=== PATIENT | female | born 1950 | race Caucasian/White ===

== ENCOUNTER 2018-05-30 09:32 | Outpatient (CLI) | payer MEDICARE | END 2018-05-30 09:33 | disposition home or self-care (01) | LOC: BICMAMMO 09:32 | PROVIDERS: ATTEND Family Medicine | DX: Z12.31 Encounter for screening mammogram for malignant neoplasm of breast (principal); Z13.820 Encounter for screening for osteoporosis; M85.852 Other specified disorders of bone density and structure, left thigh; Z80.3 Family history of malignant neoplasm of breast | CPT/HCPCS: 77063; 77067; 77080 ==

== ENCOUNTER 2018-05-30 12:56 | Outpatient (CLI) | payer MEDICARE ==
[2018-05-30] MEDS ORDERED: Gadobenate Dimeglumine 529 MG/1 ML (20ML VIAL) ONE (12:59)
== END 2018-05-30 12:57 | disposition home or self-care (01) ==
LOC: BICMRI 12:56
PROVIDERS: ATTEND Family Medicine
DX: Z12.31 Encounter for screening mammogram for malignant neoplasm of breast (principal); G93.9 Disorder of brain, unspecified; Z80.3 Family history of malignant neoplasm of breast
CPT/HCPCS: 70553; A9579

== ENCOUNTER 2018-11-15 08:20 | Outpatient (CLI) | payer MEDICARE ==
[2018-11-15 09:00] LABS: Estimated GFR-MDRD - POC Greater than 90
--- NOTE | 2018-11-15 11:17 | MRI ---
BRAIN MRI WITH AND WITHOUT CONTRAST: Date: 11/15/18 COMPARISON: 02/19/17, 05/30/18. TECHNIQUE: Brain MRI is performed with and without intravenous Gadolinium administration. Multisequential, multi planar imaging is performed. FINDINGS: Redemonstration of a right parafalcine mass with intrinsic hypointensity on the axial GRA sequence burgess ggesting calcification. This mass measures 1.9 x 1.3 cm and has some mild mass effect upon the medial right frontal lobe. No significant T2 or FLAIR hyperintensity to suggest edema. There are areas of T 2 and FLAIR hyperintensity in the white matter due to chronic small vessel ischemic change. Central arterial flow-voids are maintained. Absent restricted diffusion. Postcontrast images demonstrate homogeneous enhancement with associated dural tail. No pathologic enh ancement of the brain parenchyma. There are no additional areas of abnormal enhancement of the dura o r the brain parenchyma. IMPRESSION: Redemonstration of a right parafalcine meningioma. No significant interval change. POS: [facility]
== END 2018-11-15 08:21 | disposition home or self-care (01) ==
LOC: TBSIIMAG 08:20
PROVIDERS: ATTEND Surgery
DX: D32.0 Benign neoplasm of cerebral meninges (principal)
CPT/HCPCS: 70553; 82565

== ENCOUNTER 2020-11-08 09:06 | Outpatient (CLI) | payer MEDICARE ==
[2020-11-08 09:50] LABS: Estimated GFR-MDRD - POC Greater than 90
--- NOTE | 2020-11-08 12:16 | MRI ---
BRAIN MRI WITH AND WITHOUT CONTRAST: Date: 11/08/2020 COMPARISON: 11/15/2018. HISTORY: Reevaluate meningioma. TECHNIQUE: Multiplanar, multisequence MR imaging of the brain is provided with and without contrast. FINDINGS: The diffusion-weighted imaging demonstrates no evidence for acute infarction. The axial gradient echo imaging demonstrates no evidence for intracranial hemorrhage. There is an extra-axial mass in the posterior medial right frontal region measuring 1.9 cm AP dimensi on and 1.0 cm transverse dimension, unchanged when compared to the prior exam. Gradient echo blooming artifact is seen within this lesion suggesting internal calcification. There are numerous foci of increased T2 and FLAIR signal within the periventricular, deep, and subcor tical white matter, evidence of small vessel disease. Arterial flow-voids at the axial level of the skull base appear grossly unremarkable on the T2-weight ed imaging. There is stable prominence of the bilateral lateral ventricles. The postcontrast imaging demonstrates enhancement of the above described extra-axial mass in the post eromedial right frontal region. There is no abnormal intra-axial enhancement on this examination. There is a small focus of extra-axial enhancement anterior to the sofia on the right laterally measuri ng approximately 6.0 mm just superior and medial to the region of Meckel's cave. This small focus of extra-axial enhancement demonstrates a corresponding area of decreased T2 and T1 signal. This finding suggests a second small meningioma. IMPRESSION: Findings suggesting a stable posteromedial right parafalcine meningioma and a new subcentimeter menin gioma anterior to the sofia on the right. POS: [facility]
== END 2020-11-08 09:07 | disposition home or self-care (01) ==
LOC: TBSIIMAG 09:06
PROVIDERS: ATTEND Surgery
DX: D32.9 Benign neoplasm of meninges, unspecified (principal)
CPT/HCPCS: 70553; 82565

== ENCOUNTER 2021-08-25 09:21 | Outpatient (CLI) | payer MEDICARE | END 2021-08-25 09:22 | disposition home or self-care (01) | LOC: BICMAMMO 09:21 | PROVIDERS: ATTEND Family Medicine | DX: Z12.31 Encounter for screening mammogram for malignant neoplasm of breast (principal) | CPT/HCPCS: 77063; 77067 ==

== ENCOUNTER 2022-08-31 08:56 | Outpatient (CLI) | payer MEDICARE | END 2022-08-31 08:57 | disposition home or self-care (01) | LOC: BICMAMMO 08:56 | PROVIDERS: ATTEND Family Medicine | DX: Z12.31 Encounter for screening mammogram for malignant neoplasm of breast (principal); Z13.820 Encounter for screening for osteoporosis; E55.9 Vitamin D deficiency, unspecified; M85.851 Other specified disorders of bone density and structure, right thigh; M85.852 Other specified disorders of bone density and structure, left thigh | CPT/HCPCS: 77063; 77067; 77080 ==

== ENCOUNTER 2023-02-23 09:18 | Outpatient (CLI) | payer MEDICARE | END 2023-02-23 09:19 | disposition home or self-care (01) | LOC: ULT 09:18 | PROVIDERS: ATTEND Family Medicine | DX: G45.3 Amaurosis fugax (principal) | CPT/HCPCS: 93880 ==

== ENCOUNTER 2023-09-25 10:25 | Outpatient (CLI) | payer MEDICARE | END 2023-09-25 10:26 | disposition home or self-care (01) | LOC: BICMAMMO 10:25 | PROVIDERS: ATTEND Family Medicine | DX: Z12.31 Encounter for screening mammogram for malignant neoplasm of breast (principal) | CPT/HCPCS: 77063; 77067 ==

== ENCOUNTER 2024-09-26 09:38 | Outpatient (CLI) | payer MEDICARE, OTHER | END 2024-09-26 09:39 | disposition home or self-care (01) | LOC: BICMAMMO 09:38 | PROVIDERS: ATTEND Nurse Practitioner Family | DX: Z12.31 Encounter for screening mammogram for malignant neoplasm of breast (principal); M85.852 Other specified disorders of bone density and structure, left thigh; M85.851 Other specified disorders of bone density and structure, right thigh | CPT/HCPCS: 77063; 77067; 77080 ==

== ENCOUNTER 2025-10-01 08:32 | Outpatient (CLI) | payer MEDICARE, OTHER | END 2025-10-01 08:33 | disposition home or self-care (01) | LOC: BICMAMMO 08:32 | PROVIDERS: ATTEND Nurse Practitioner Family | DX: Z12.31 Encounter for screening mammogram for malignant neoplasm of breast (principal); Z80.3 Family history of malignant neoplasm of breast | CPT/HCPCS: 77063; 77067 ==